=== PATIENT | male | born 1980 | race Two or more races ===

== ENCOUNTER 2016-07-03 22:30 | Emergency (ER) | payer SELFPAY ==
[~2016-07-03] VITALS: Ht 165.1 cm; Wt 80.7 kg
[2016-07-03 23:00] VITALS: BP 158/86
[2016-07-03] MEDS ORDERED: PRED50TA PO (23:33)
[2016-07-03] MEDS ORDERED: DEXT15DR5 LEFTEYE (23:33)
--- NOTE | 2016-07-03 23:34 | PHYS DOC ---
Past Medical History Past Medical History: Diabetes-Type II, High Cholesterol Past Surgical History: No Surgical History Alcohol Use: None Drug Use: None Adult General Chief Complaint Chief Complaint: FACE PROBLEM HPI HPI Patient is a 36 year old gentleman who presents here today secondary to left facial droop and some pain to the back of his head that started on Wednesday. Patient reports that the pain started the same time as the difficulty with smiling and moving his left side of his face. Patient reports that he does have a history significant for hypertension, no diabetes liver longer kidney pals. Patient has any CHF or COPD. Patient has any abdominal or chest surgeries. Patient reports he does not smoke drink or do any drugs. Patient is not allergic to any medications. Patient has any abdominal pain or chest pain. Patient has any fevers shakes chills nausea vomiting diarrhea chest pain shortness of breath dysuria frequency or urgency. Patient has a sore throat or change in his hearing. Patient reports she's got no recollection of having chickenpox in the past. Patient does not recall whether not he got shingles vaccine. Patient's physical exam was significant for weakness his left cheeks. Weakness to his left forehead. She is unable to close his left eyelid. Patient has no visible rash. Patient has no signs some symptoms consistent with a Nehemias Smith syndrome. 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 The remainder the patient's neuro exam is unremarkable. Patient's tongue is midline. Patient's upper extremities are 5 out of 5. Patient's lower extremities are 5 out of 5. Patient has a completely normal cerebellar exam. A/P #1 weakness in the left side of his face with pain. This is most likely secondary to Martinez's palsy. Using the spanish interpreter/translator system I did explain to the patient that this is not a stroke at this is consistent with a peripheral neuropathy. I discussed with the patient his way to recovery. I discussed with him the risk and the possibility that he might have no improvement in his symptoms. I discussed with him that I would need to start him on steroids and have him follow-up with his primary care doctor early this week for reevaluation. I discussed with the patient the need to tape his left eyelid shut when he is asleep. Patient be given a prescription for artificial teardrops as well as prednisone. Review of Systems Review of Systems Constitutional: Denies fever or chills [] Eyes: Denies change in visual acuity, redness, or eye pain [] HENT: Denies nasal congestion or sore throat [] All other review systems are negative except as documented in the history of present illness portion. Allergies Allergies Allergies Coded Allergies Type Severity Reaction Last Updated Verified No Known Drug Allergies 07/03/16 No Physical Exam Physical Exam Constitutional: Well developed, well nourished, no acute distress, non-toxic appearance. [] HENT: Normocephalic, atraumatic, bilateral external ears normal, oropharynx moist, no oral exudates, nose normal. [] Eyes: PERRLA, EOMI, conjunctiva normal, no discharge. [] Neck: Normal range of motion, no tenderness, supple, no stridor. [] Cardiovascular:Heart rate regular rhythm, no murmur [] Lungs & Thorax: Bilateral breath sounds clear to auscultation [] Abdomen: Bowel sounds normal, soft, no tenderness, no masses, no pulsatile masses. [] Skin: Warm, dry, no erythema, no rash. [] Back: No tenderness, no CVA tenderness. [] Extremities: No tenderness, no cyanosis, no clubbing, ROM intact, no edema. [] Neurologic: Alert and oriented X 3, see above patient unable to lift his left eyebrow. Psychologic: Affect normal, judgement normal, mood normal. [] Current Patient Data Vital Signs Vital Signs Date Time Temp Pulse Resp B/P Pulse Ox O2 Delivery O2 Flow Rate FiO2 07/03/16 23:00 98.3 87 14 95 Room Air 98.3 EKG EKG [] Radiology/Procedures Radiology/Procedures [] Course & Med Decision Making Course & Med Decision Making Pertinent Labs and Imaging studies reviewed. (See chart for details) [] Dragon Disclaimer Dragon Disclaimer This electronic medical record was generated, in whole or in part, using a voice recognition dictation system. Departure Departure Impression: Primary Impression: Martinez's palsy Disposition: 01 HOME, SELF-CARE Condition: IMPROVED Referrals: UNKNOWN PCP NAME (PCP) Patient Instructions: Martinez's Palsy Additional Instructions: Please make sure to tape her eyes shut at night Scripts Dextran 70/Hypromellose (Artificial Tears Eye Drops)15 Ml Drops1 Drop LEFTEYE QID #15 ML Ref 5 Prov:RAFIA MON MD 07/03/16 Prednisone 50 Mg Tablet1 Tab PO DAILY #5 TAB Prov:RAFIA MON MD 07/03/16 RAFIA MON MD Jul 03, 2016 23:34
== END 2016-07-03 23:50 | disposition home or self-care (01) ==
LOC: ER 22:30
DX: G51.0 Bell's palsy (principal); E11.9 Type 2 diabetes mellitus without complications; E78.00 Pure hypercholesterolemia, unspecified
CPT/HCPCS: 99283